=== PATIENT | female | born 1965 | race Caucasian/White ===

== ENCOUNTER → 2016-11-26 | Outpatient (CLI) | payer OTHER ==
[~2016-11-26] MED LIST: ASA5UEC PO; B-50 COMPLEX1 EAC1 PO; CELEBREX PO; CENTRUM TABLET1 TAB PO; NEXIUM40 MG PO; VITAMIN D1000 UNI1 PO; VITCB500GO PO
== END ==
LOC: RAD 01:14
DX: R92.8 Other abnormal and inconclusive findings on diagnostic imaging of breast (principal)

== ENCOUNTER → 2017-01-24 | Outpatient (CLI) | payer OTHER | LOC: RAD 09:11 | DX: M47.819 Spondylosis without myelopathy or radiculopathy, site unspecified (principal); M16.10 Unilateral primary osteoarthritis, unspecified hip; R10.9 Unspecified abdominal pain; R11.10 Vomiting, unspecified ==

== ENCOUNTER → 2017-11-28 | Outpatient (CLI) | payer OTHER ==
[~2017-11-28] MED LIST changes: +HUMIRA40 MG/0.1 SUBQ; +MEDROLDOSEPACK PO; +NORVASC5 MG PO
== END ==
LOC: RAD 01:03
DX: R92.8 Other abnormal and inconclusive findings on diagnostic imaging of breast (principal); Z80.3 Family history of malignant neoplasm of breast

== ENCOUNTER → 2017-12-20 | Outpatient (CLI) | payer OTHER | LOC: RAD 09:33 | DX: R10.9 Unspecified abdominal pain (principal); R07.89 Other chest pain; Z90.49 Acquired absence of other specified parts of digestive tract ==

== ENCOUNTER 2018-04-17 08:58 | Emergency (ER) | payer OTHER ==
[~2018-04-17] VITALS: Ht 167.6 cm; Wt 89.4 kg
--- NOTE | ~2018-04-17 | EKG ---
[place] [address] [facility] [place] [address] ELECTROCARDIOGRAM REPORT Name: MARGO QUIÑONES Michel Room #: DEP [facility]#: [id number] Admission: 04/17/18 Attend Phys: Discharge: 04/17/18 Date of : 61 Report #: [id number] THIS REPORT FOR: //name// [facility] ED Test Date: 2018-04-17 Test Time: 09:05:40 Pat Name: MARGO QUIÑONES Department: Room: Gender: F [employer]: : 1965 Requested By: Erick Gibson Order Number: [id number] MD: Matthew Fonseca Measurements Intervals [place] Rate: 64 P: 3 UT: 161 QRS: -28 QRSD: 104 T: 18 QT: 413 QTc: 426 Interpretive Statements Sinus rhythm Borderline left axis deviation RSR' in V1 or V2, right VCD Compared to ECG 05/11/2007 10:12:23 Sinus bradycardia no longer present Electronically Signed On 04-17-2018 10:55:12 CDT by Matthew Fonseca [email or web address] <ELECTRONICALLY SIGNED> By: Matthew Fonseca MD, [facility] 04/17/18 1055 4 4 Matthew Fonseca MD, [facility] /EPI
[~2018-04-17 08:58] MED LIST changes: -HUMIRA40 MG/0.1 SUBQ; -MEDROLDOSEPACK PO; -NORVASC5 MG PO
[2018-04-17] MEDS ORDERED: NORVASC5 MG PO (09:25)
[2018-04-17] MEDS ORDERED: HUMIRA40 MG/0.1 SUBQ (09:25)
[2018-04-17 09:47] LABS: EOSINOPHILS 4.8 % (0.0-3.0)
[2018-04-17 09:48] LABS: BASOPHILS 0.6 % (0.0-2.0); HEMATOCRIT 40.2 % (37.0-47.0); HEMOGLOBIN 13.7 gm/dL (12.0-15.0); LYMPHOCYTES 32.6 % (24.0-44.0); MCH 30.1 pg (26.0-34.0); MCHC 34.1 g/dL (28.0-37.0); MCV 88.2 fL (80.0-100.0); MONOCYTES 9.8 % (1.0-8.0); POLYS 52.2 % (36.0-66.0); RBC 4.56 mil/uL (4.20-5.00); RDW 12.5 % (10.5-14.5); WBC 7.7 thou/uL (4.0-11.0)
[2018-04-17 09:52] LABS: ANION GAP 9 mmol/L (7-16); BUN 19 mg/dL (7-18); CALCIUM 9.5 mg/dL (8.5-10.1); CHLORIDE 105 mmol/L (98-107); CO2 24 mmol/L (21-32); CREATININE 0.8 mg/dL (0.6-1.0); GLUCOSE 126 mg/dL (74-106); POTASSIUM 4.2 mmol/L (3.5-5.1); SODIUM 138 mmol/L (136-145)
[2018-04-17 10:01] LABS: ALBUMIN 4.1 g/dL (3.4-5.0); DIRECT BILIRUBIN < 0.1 mg/dL (<0.1-0.3); SGOT 23 U/L (15-37); SGPT 31 U/L (30-65); TOTAL BILIRUBIN 0.4 mg/dL (<0.1-1.0); TOTAL PROTEIN 7.3 g/dL (6.4-8.2); TROPONIN-I < 0.04 ng/mL (<0.06)
[2018-04-17] MEDS ORDERED: MEDROLDOSEPACK PO (10:24)
[2018-04-17 10:37] VITALS: BP 126/84
[2018-04-17 10:51] LABS: PLATELET COUNT 203 thou/uL (150-400)
[2018-04-17 10:52] LABS: PLATELET ESTIMATE NORMAL
== END 2018-04-17 10:37 | disposition home or self-care (01) ==
LOC: ER 08:58
PROVIDERS: Physician Assistant
DX: R06.02 Shortness of breath (principal); R07.1 Chest pain on breathing; I10 Essential (primary) hypertension; G43.909 Migraine, unspecified, not intractable, without status migrainosus; K21.9 Gastro-esophageal reflux disease without esophagitis; Z90.89 Acquired absence of other organs; Z91.048 Other nonmedicinal substance allergy status

== ENCOUNTER 2019-03-08 16:01 | Emergency (ER) | payer OTHER ==
[~2019-03-08] VITALS: Ht 167.6 cm; Wt 71.2 kg
[~2019-03-08 16:01] MED LIST changes: +HUMIRA40 MG/0.1 SUBQ; +MEDROLDOSEPACK PO; +NORVASC5 MG PO
[2019-03-08 16:03] VITALS: BP 146/85
[2019-03-08] MEDS ORDERED: TESSALON PERLE100 MG PO (16:37)
[2019-03-08] MEDS ORDERED: DOXYCYCLINE 10100 MG PO (16:37)
[2019-03-08] MEDS ORDERED: PREDNISONE 20 M20 MG PO (16:37)
[2019-03-08] MEDS ORDERED: VENTOLIN HFA 1818 GM INH (16:37)
== END 2019-03-08 16:49 | disposition home or self-care (01) ==
LOC: ER 16:01
DX: J18.8 Other pneumonia, unspecified organism (principal); G43.909 Migraine, unspecified, not intractable, without status migrainosus; K21.9 Gastro-esophageal reflux disease without esophagitis; M06.9 Rheumatoid arthritis, unspecified; Z88.2 Allergy status to sulfonamides; Z88.8 Allergy status to other drugs, medicaments and biological substances; Z79.899 Other long term (current) drug therapy; Z90.49 Acquired absence of other specified parts of digestive tract

== ENCOUNTER → 2019-10-29 | Outpatient (CLI) | payer OTHER ==
[~2019-10-29] MED LIST changes: +DOXYCYCLINE 10100 MG PO; +PREDNISONE 20 M20 MG PO; +TESSALON PERLE100 MG PO; +VENTOLIN HFA 1818 GM INH
== END ==
LOC: CAT 10:38
DX: K57.30 Diverticulosis of large intestine without perforation or abscess without bleeding (principal); N26.1 Atrophy of kidney (terminal); K56.41 Fecal impaction; N28.89 Other specified disorders of kidney and ureter; Z90.49 Acquired absence of other specified parts of digestive tract

== ENCOUNTER → 2020-06-12 | Outpatient (CLI) | payer OTHER | LOC: RAD 10:22 | PROVIDERS: ATTEND Obstetrics & Gynecology | DX: Z12.31 Encounter for screening mammogram for malignant neoplasm of breast (principal) ==

== ENCOUNTER → 2020-09-08 | Outpatient (CLI) | payer OTHER | LOC: LAB 09:48 | PROVIDERS: ATTEND Family Medicine | DX: U07.1 COVID-19 (principal) ==

== ENCOUNTER → 2020-10-29 | Outpatient (CLI) | payer OTHER | LOC: SJCVCIMAG 08:34 | PROVIDERS: ATTEND Internal Medicine | DX: I34.0 Nonrheumatic mitral (valve) insufficiency (principal); R00.1 Bradycardia, unspecified; E78.5 Hyperlipidemia, unspecified; Z86.19 Personal history of other infectious and parasitic diseases ==

== ENCOUNTER 2021-06-27 12:15 | Emergency (ER) | payer OTHER ==
[~2021-06-27] VITALS: Ht 167.6 cm; Wt 80.7 kg
[2021-06-27 12:30] LABS: URINE BILIRUBIN NEGATIVE (Negative); URINE BLOOD NEGATIVE (Negative); URINE CLARITY CLEAR; URINE GLUCOSE-RANDOM* NEGATIVE (Negative); URINE KETONES NEGATIVE (Negative); URINE LEUKOCYTES-REFLEX TRACE (Negative); URINE NITRITE-REFLEX NEGATIVE (Negative); URINE PROTEIN (DIPSTICK) NEGATIVE (Negative); URINE SPECIFIC GRAVITY <= 1.005 (1.005-1.035); URINE UROBILINOGEN 0.2 E.U./dl (0.2-1.0)
[2021-06-27 12:31] LABS: URINE COLOR STRAW
[2021-06-27 12:51] LABS: HEMATOCRIT 41.8 % (37.0-47.0); HEMOGLOBIN 14.1 gm/dL (12.0-15.0); MCH 29.6 pg (26.0-34.0); MCHC 33.7 g/dL (28.0-37.0); RBC 4.75 mil/uL (4.20-5.00); RDW 12.6 % (10.5-14.5); WBC 7.6 thou/uL (4.0-11.0)
[2021-06-27 13:00] LABS: POTASSIUM 3.9 mmol/L (3.5-5.1)
[2021-06-27 13:05] LABS: ALBUMIN 4.1 g/dL (3.4-5.0); TOTAL BILIRUBIN 0.5 mg/dL (0.2-1.0); TOTAL PROTEIN 7.2 g/dL (6.4-8.2)
[2021-06-27 15:34] VITALS: BP 134/84
== END 2021-06-27 15:37 | disposition home or self-care (01) ==
LOC: ER 12:15
PROVIDERS: Nurse Practitioner Family
DX: R10.84 Generalized abdominal pain (principal); N83.201 Unspecified ovarian cyst, right side; N83.202 Unspecified ovarian cyst, left side; K21.9 Gastro-esophageal reflux disease without esophagitis; M19.90 Unspecified osteoarthritis, unspecified site; Z90.49 Acquired absence of other specified parts of digestive tract; Z90.89 Acquired absence of other organs; Z79.82 Long term (current) use of aspirin; Z79.899 Other long term (current) drug therapy; Z88.1 Allergy status to other antibiotic agents; Z88.6 Allergy status to analgesic agent

== ENCOUNTER → 2021-07-08 | Outpatient (CLI) | payer OTHER | LOC: BC 13:52 | PROVIDERS: ATTEND Internal Medicine Pulmonary Disease | DX: Z12.31 Encounter for screening mammogram for malignant neoplasm of breast (principal); M51.34 Other intervertebral disc degeneration, thoracic region ==